=== PATIENT | male | born 1990 | race African-American/Black ===

== ENCOUNTER 2018-05-29 12:56 | Emergency (ER) | payer OTHER, SELFPAY ==
[2018-05-29 13:05] VITALS: BP 124/78; PULSE 69; RESP 16; TEMP 36.9; O2SAT 98
[2018-05-29 13:12] LABS: Bacteria Urine None Seen; RBC Urine None Seen (0-5/HPF)
[2018-05-29 13:14] LABS: Appearance Urine UA CLEAR; Bilirubin Urine UA NEGATIVE (NEGATIVE); Color Urine UA YELLOW; Glucose Urine UA NEGATIVE (Negative); Ketones Urine UA NEGATIVE (NEGATIVE); Leukocyte Esterase Urine UA TRACE (NEGATIVE); Nitrite Urine UA NEGATIVE (Negative); Occult Blood Urine UA NEGATIVE (Negative); Protein Urine UA TRACE (Negative); Urobilinogen Urine UA 0.2 E.U./dL (0.2); pH Urine UA 7.5 (4.5-8.0)
--- NOTE | 2018-05-29 13:27 | ED.MALEGU ---
HPI - Male Genitourinary General Chief complaint: Urogenital-Male Stated complaint: INFECTION Time Seen by Provider: 05/29/18 13:19 Source: patient Mode of arrival: ambulatory Limitations: no limitations History of Present Illness HPI Narrative: Patient is a 28-year-old male presenting with possible STD. He says he is having intercourse 1 week ago and the condom broke. 3 days ago he had gross discharge from his urethra. He does have some discomfort with urination as well. No testicular pain no redness. No fever no abdominal pain or flank pain. He also denies any rash. MD Complaint: penile discharge and dysuria Onset (ago): day(s) (3) Duration: intermittent Exacerbating factors: none new sexual partner Related Data Home Medications Medication Instructions Recorded Confirmed No Known Home Medications 05/29/18 05/29/18 Allergies Allergy/AdvReac Type Severity Reaction Status Date / Time No Known Drug Allergies Allergy Verified 05/29/18 13:33 Review of Systems Review of Systems ROS Unobtainable: All systems reviewed & are unremarkable except as noted in HPI and below Constitutional Denies chills, Denies fever(s), Denies lethargy and Denies weakness Cardiovascular Denies chest pain and Denies syncope Respiratory Denies cough and Denies pain with cough Gastrointestinal Gastrointestinal: Denies abdominal pain, Denies change in bowel habits, Denies diarrhea, Denies nausea and Denies vomiting Genitourinary Reports as per HPI and Reports penile discharge Musculoskeletal Denies back pain, Denies muscle weakness, Denies numbness and Denies tingling Integumentary/Breasts Denies pruritus, Denies erythema, Denies rash and Denies wounds Neurologic Denies syncope, Denies numbness, Denies tingling and Denies weakness [facility] Medical History Patient denies significant medical history (Acute) Social History Smoking Status: Never smoker Social History Smoking Status: Never smoker Exam Initial Vital Signs Initial Vital Signs: Vital Signs Temperature 98.4 F 05/29/18 13:05 Pulse Rate 69 05/29/18 13:05 Respiratory Rate 16 05/29/18 13:05 Blood Pressure 124/78 05/29/18 13:05 Pulse Oximetry 98 05/29/18 13:05 GENERAL: alert well-appearing young male no acute distress HEENT: Head atraumatic,EOMI, pupils reactive, CARDIOVASCULAR: Regular rate and rhythm without murmurs, rubs or gallops. RESPIRATORY: Breath sounds equal bilaterally, no wheezes rales or rhonchi. ABDOMEN: Soft, nontender. Normoactive bowel sounds all 4 quadrants. No guarding or rebound. : nurse often in room for exam. Testicles descended non erythematous nontender. No gross discharge from penis. No rashesNo CVA tenderness EXTREMITIES: Normal range of motion, no clubbing or edema. Neurovascularly intact NEUROLOGICAL: Alert and oriented x4. SKIN: Warm, dry, no laceration, no petechiae, no rashes or lesions. Course Orders Ordered: ED Orders 05/29/18 13:07 Urinalysis and Microscopic Stat Urine Chlamydia Gonorrhea PCR Stat Urine Culture Stat Discontinued Medications Azithromycin (Zithromax) 1,000 mg PO NOW ONE Stop: 05/29/18 13:28 Last Admin: 05/29/18 13:34 Dose: 1,000 mg Ceftriaxone Sodium (Rocephin) 250 mg IM NOW ONE Stop: 05/29/18 13:28 Last Admin: 05/29/18 13:34 Dose: 250 mg Vital Signs - 8 hr 05/29/18 13:05 Temperature 98.4 F Pulse Rate 69 Respiratory Rate 16 Blood Pressure 124/78 Pulse Oximetry 98 MDM - Male Genitourinary Lab Data Lab Results 05/29/18 05/29/18 Range/Units 13:07 13:07 Urine Color Yellow Urine Appearance Clear Urine pH 7.5 (4.5-8.0) Ur Specific [place] 1.020 (1.000-1.035) Urine Protein Trace H (Negative) Urine Glucose (UA) Negative (Negative) g/dL Urine Ketones Negative (NEGATIVE) Urine Occult Blood Negative (Negative) Urine Nitrate Negative (Negative) Urine Bilirubin Negative (NEGATIVE) Urine Urobilinogen 0.2 (0.2) E.U./dL Ur Leukocyte Esterase Trace H (NEGATIVE) Urine RBC None seen (0-5/HPF) Urine WBC 5-10/hpf H (0-5/HPF) Ur Squamous Epith Cells None seen Urine Bacteria None seen (None) Ur Culture Indicated? Specimen cultured Ur Chlamydia DNA (PCR) Not detected N gonorrhoeae DNA (PCR) Not detected MDM Narrative Medical decision making narrative: patient was empirically treated for gonorrhea is in Chlamydia based on his gross penile discharge. As the patient did not want to wait for urinalysis results. I said that I would call him. When results came back I personally called and left patient voice mail stating his results were negative. Discharge Plan Departure Patient Disposition: Home Clinical Impression: Urethritis Discharge Date/Time: 05/29/18 13:59 Interventions: ED Discharge Assessment Last Done: 05/29/18 13:59 Instructions: Facts About Sexually Transmitted Infections Activity Restrictions/Additional Instructions: *You have been diagnosed with Urethritis *What to do: you have been treated for gonorrhea and Chlamydia. I will call you in a few hours is when it urine testing is back. IT IS STILL RECOMMENDED THAT YOU GET TESTED FOR HIV AND HEPATITIS BY HIS YOUR DOCTOR OR PUBLIC HEALTH DEPARTMENT. *Continue to take medications as directed *Follow up with your primary care provider in 2-3 days *Return to ER if you should have any new, worsening or concerning symptoms Prescriptions: No Action No Known Home Medications RF: 0
[2018-05-29] MEDS: cefTRIAXone 500 MG VIAL 250 MG IM (13:34)
[2018-05-29] MEDS: AZITHROMYCIN 250 MG TABLET 1000 MG PO (13:34)
[2018-05-29 13:52] LABS: Culture Indicated Urine Specimen Cultured; Squamous Epithelial Cell Urine None Seen; WBC Urine 5-10/HPF (0-5/HPF)
[2018-05-29 14:43] LABS: Urine N gonorrhoeae NOT DETECTED
[2018-05-29 14:44] LABS: Urine Chlamydia NOT DETECTED
== END 2018-05-29 13:59 | disposition home or self-care (01) ==
PROVIDERS: Nurse Practitioner Family; Emergency Provider Emergency Medicine
DX: N34.2 Other urethritis (principal)
CPT/HCPCS: 81001; 87086; 87491; 87591; 96372; 99282; 99283; J0696